=== PATIENT | male | born 1995 | race Caucasian/White ===

== ENCOUNTER 2020-09-21 23:59 | Emergency (ER) | payer OTHER ==
[~2020-09-21] VITALS: Ht 180.3 cm; Wt 65.8 kg
== END 2020-09-22 04:27 | disposition home or self-care (01) ==
LOC: ER 23:59
DX: R53.1 Weakness (principal); Z76.0 Encounter for issue of repeat prescription; Z91.041 Radiographic dye allergy status; F17.200 Nicotine dependence, unspecified, uncomplicated; Z20.822 Contact with and (suspected) exposure to COVID-19
CPT/HCPCS: 0241U; 36415; 80053; 83690; 85025; 99284; J7030

== ENCOUNTER 2020-12-26 12:14 | Emergency (ER) | payer SELFPAY ==
[~2020-12-26] VITALS: Ht 182.9 cm; Wt 61.2 kg
[~2020-12-26 12:14] MED LIST: BASAGLAR K100 UNIT/5 SC; BIKTARVY 50-201 EAC1 PO; LANTUS SOL100 UNIT/1 SC
[2020-12-26] MEDS ORDERED: BENZ100A PO (13:38)
== END 2020-12-26 14:04 | disposition home or self-care (01) ==
LOC: ER 12:14
DX: J02.9 Acute pharyngitis, unspecified (principal)
CPT/HCPCS: 71045; 99283-25